=== PATIENT | female | born 1975 | race Hispanic/Latino ===

== ENCOUNTER 2019-03-10 19:59 | Emergency (ER) | payer MEDICAID | END 2019-03-10 20:32 | disposition home or self-care (01) | LOC: EDH 19:59 | DX: Z00.00 Encounter for general adult medical examination without abnormal findings (principal); F20.9 Schizophrenia, unspecified; F14.10 Cocaine abuse, uncomplicated; F12.10 Cannabis abuse, uncomplicated; Z88.0 Allergy status to penicillin ==

== ENCOUNTER 2019-07-23 16:42 | Emergency (ER) | payer MEDICAID ==
[2019-07-23] MEDS ORDERED: IBUPROFEN 800 MG TAB ONE (19:21)
== END 2019-07-23 19:39 | disposition home or self-care (01) ==
LOC: EDH 16:42
DX: S09.8XXA Other specified injuries of head, initial encounter (principal); F12.10 Cannabis abuse, uncomplicated; Z72.0 Tobacco use; Z88.0 Allergy status to penicillin; Y00.XXXA Assault by blunt object, initial encounter; Y93.89 Activity, other specified; Y92.89 Other specified places as the place of occurrence of the external cause; Y99.8 Other external cause status
CPT/HCPCS: 70450; 81025

== ENCOUNTER 2019-09-03 08:21 | Emergency (ER) | payer MEDICAID | END 2019-09-03 09:04 | disposition home or self-care (01) | LOC: EDH 08:21 → EEVIPCON 08:21 → EDH 09:04 | DX: S51.812A Laceration without foreign body of left forearm, initial encounter (principal); Z72.0 Tobacco use; Z88.0 Allergy status to penicillin; X58.XXXA Exposure to other specified factors, initial encounter; Y93.89 Activity, other specified; Y92.89 Other specified places as the place of occurrence of the external cause; Y99.8 Other external cause status ==